=== PATIENT | female | born 1990 | race Caucasian/White ===

== ENCOUNTER 2024-01-09 23:30 | Emergency (ER) | payer BC, OTHER ==
[~2024-01-09] VITALS: Ht 177.8 cm; Wt 68.0 kg
[2024-01-10] MEDS ORDERED: KETOROLAC TROMETHAMINE 15 MG/ML VIAL ONE (01:04)
[2024-01-10] MEDS ORDERED: ONDANSETRON HCL/PF 4 MG/2 ML VIAL ONE (01:04)
[2024-01-10] MEDS ORDERED: PANTOPRAZOLE 40 MG VIAL ONE (01:04)
[2024-01-10] MEDS: KETOROLAC TROMETHAMINE 15 MG/ML VIAL IV ONE (01:12)
[2024-01-10] MEDS: PANTOPRAZOLE 40 MG VIAL IV ONE (01:12)
[2024-01-10] MEDS: IV NS 0.9% 1,000 ML BAG IV ONE (01:12)
[2024-01-10] MEDS: ONDANSETRON HCL/PF 4 MG/2 ML VIAL IVP ONE (01:12)
[2024-01-10 01:45] LABS: BASOPHILS % (AUTO) 0.1 % (0.0-2.0); EOSINOPHILS % (AUTO) 0.2 % (0.0-6.0); HEMATOCRIT 42 % (33-45); HEMOGLOBIN 13.6 g/dL (11.5-14.8); LYMPHOCYTES # (AUTO) 0.2 K/uL (0.8-4.8); LYMPHOCYTES % (AUTO) 1.3 % (20.0-44.0); MEAN CORPUSCULAR HEMOGLOBIN 27 PG (26.0-33.0); MEAN CORPUSCULAR HGB CONC 33 g/dl (31.0-36.0); MEAN CORPUSCULAR VOLUME 84 fL (82-100); MONOCYTES # (AUTO) 0.4 K/uL (0.1-1.30); MONOCYTES % (AUTO) 3.2 % (2.0-12.0); NEUTROPHILS # (AUTO) 13.1 K/uL (1.8-8.9); NEUTROPHILS % (AUTO) 95.2 % (43.0-81.0); PLATELET COUNT (AUTO) 263 K/uL (150-450); RED BLOOD CELL COUNT(AUTO) 4.96 MIL/uL (4.0-5.2); RED CELL DISTRIBUTION WIDTH 15.8 % (11.5-15.0); WHITE BLOOD COUNT (AUTO) 13.8 K/uL (4.3-11.0)
[2024-01-10 01:55] LABS: ALBUMIN 3.8 g/dL (3.4-5.0); BILIRUBIN,DIRECT 0.3 mg/dL (0.0-0.2); BILIRUBIN,TOTAL 1.4 mg/dL (0.2-1.0); CREATININE 0.9 mg/dL (0.6-1.3); POTASSIUM 3.7 mmol/L (3.5-5.1); TOTAL PROTEIN, SERUM 7.6 g/dL (6.4-8.2)
[2024-01-10] MEDS ORDERED: ONDA4TAB11 PO (02:00)
[2024-01-10] MEDS ORDERED: PANT20TA2 PO (02:00)
[2024-01-10] MEDS ORDERED: DICY10CA37 PO (02:00)
[2024-01-10 03:16] VITALS: BP 112/64; TEMP 98.5; O2SAT 98
== END 2024-01-10 03:16 | disposition home or self-care (01) ==
LOC: ER 23:34
DX: K52.9 Noninfective gastroenteritis and colitis, unspecified (principal); R10.13 Epigastric pain; R11.2 Nausea with vomiting, unspecified
CPT/HCPCS: 99285; 36415; 96374; 96361; 96375 ×2; 76705; 85025; 80048; 83690; 80076; J2405; J7030 ×2; J2470; J1885